=== PATIENT | female | born 1955 | race Caucasian/White ===

== ENCOUNTER 2019-05-29 07:57 | Day surgery (SDC) ==
--- NOTE | 2019-05-27 10:19 | HISTORY AND PHYSICAL ---
HISTORY: Patient is a 64-year-old female who has undergone prior surgical correction of pelvic organ prolapse using an anterior compartment mesh. The surgery was performed by another N[employer] SH[employer] MANAGER and the patient did well for approximately 1 year after surgery, but has been dealing with continued issues including revision of the anterior mesh 1 year after surgery. The patient has now had almost a total recurrence of her prolapse. On examination, she was found to have stage III prolapse that is mostly apical in nature. We discussed pessary management at length and she has no interest whatsoever in attempting pessary management and is wishing to proceed with surgical correction. The risks and benefits of sacrocolpopexy were explained at length. She understands and is wishing to proceed with surgical intervention. PAST MEDICAL HISTORY: Positive for hypertension, constipation and prolapse. PAST SURGICAL HISTORY: Positive for bilateral tubal ligation, transvaginal hysterectomy, endometrial ablation and anterior compartment repair with mesh. ALLERGIES: Anti-inflammatory medications primarily Mobic. SOCIAL HISTORY: Negative for tobacco, ETOH or drugs. FAMILY HISTORY: Noncontributory. PHYSICAL EXAMINATION: GENERAL: BMI is 35. HEENT: Normocephalic, atraumatic. PERRLA. EOMI. No thyromegaly. CV: Regular rate and rhythm without murmur, gallop, or rub. PULMONARY: Clear to auscultation and percussion. ABDOMEN: Soft. : Shows POP 2 stage 2-3 prolapse. The leading edge is BA at +1, C is -7, TVL is 9. She has lateral detachment bilaterally. AP is -2, BP is -4, GH is 6, PB is 4. NEUROLOGIC: Afocal. EXTREMITIES: Without clubbing, cyanosis, or edema. ASSESSMENT AND PLAN: The patient is admitted at this time for Da Gabrielle sacral colpopexy. The risks and benefits have been explained at length. She understands and is wishing to proceed to surgical intervention. cc: Christofer Negro MD
--- NOTE | 2019-05-27 15:07 | EKG Report ---
Test Performed on : 05/27/2019 2:55:46 PM Test Reason : PAT Blood Pressure : / mmHG Vent. Rate : 088 BPM Atrial Rate : 088 BPM P-R Int : 176 ms QRS Dur : 088 ms QT Int : 386 ms P-R-T Axes : 052 -09 037 degrees QTc Int : 467 ms Normal sinus rhythm. Minimal voltage criteria for LVH, may be normal variant Borderline ECG When compared with ECG of 18-OCT-2011 10:57, No significant change was found Confirmed by Ashley Dent MD ([id number]) on 05/31/2019 9:30:30 PM
[2019-05-27 15:14] LABS: BASO# 0.03 X1000 (0.0-0.2); BASO% 0.3 % (0.0-0.8); EOS# 0.08 X1000 (0.0-0.7); EOS% 0.9 % (0.0-10.0); HEMATOCRIT 37.7 % (37.0-47.0); HEMOGLOBIN 11.8 g/dL (12.0-16.0); IMM GRAN# 0.02 X1000 (0.0-0.04); IMM GRAN% 0.2 % (0.0-0.5); LYMPH# 2.91 X1000 (1.2-3.4); LYMPH% 33.6 % (20.5-51.1); MCH 26.8 PG (27-31); MCHC 31.3 g/dL (33-37); MCV 85.7 FL (81-99); MONO# 0.77 X1000 (0.11-0.59); MONO% 8.9 % (1.7-9.3); MPV 10.3 FL (7.4-10.4); NEUT# 4.86 X1000 (1.4-6.5); NEUT% 56.1 % (42.2-75.2); PLT 319 X1000 (130-400); RDW 15.9 % (11.5-14.5); WBC 8.67 X1000 (4.8-10.8)
[2019-05-29] MEDS ORDERED: DIPRIVAN 1% ONE (07:59)
[2019-05-29] MEDS ORDERED: XYLOCAINE-MPF 2% ONE (07:59)
[2019-05-29] MEDS ORDERED: FENTANYL ONE (07:59)
[2019-05-29] MEDS ORDERED: NORCURON ONE (08:00)
[2019-05-29] MEDS ORDERED: QUELICIN (DOSE) ONE (08:00)
[2019-05-29] MEDS ORDERED: VERSED ONE (08:00)
[2019-05-29] MEDS ORDERED: SENSORCAINE 0.25%/EPI 1:200,000 ONE (08:33)
[2019-05-29] MEDS ORDERED: LR 1,000 ML ONE ×3 (08:33→11:45)
[2019-05-29] MEDS ORDERED: D10W 1,000 ML ONE (08:33)
[2019-05-29] MEDS ORDERED: KEFZOL 1 GM/D5W 2 GM/100 ML IVPB ONE (08:35)
--- NOTE | 2019-05-29 09:11 | H&P REVIEW ---
H&P Update H&P Review: H&P was reviewed and patient was examined, No change has occurred in the patient's condition
[2019-05-29] MEDS ORDERED: ZOFRAN ONE (09:34)
[2019-05-29] MEDS ORDERED: TORADOL ONE (09:34)
[2019-05-29] MEDS ORDERED: DECADRON ONE (09:34)
[2019-05-29] MEDS ORDERED: EPHEDRINE ONE (09:56)
[2019-05-29] MEDS ORDERED: ROBINUL ONE (10:06)
[2019-05-29] MEDS ORDERED: NEOSTIGMINE ONE (10:06)
[2019-05-29] MEDS ORDERED: LASIX ONE (10:06)
[2019-05-29] MEDS ORDERED: DILAUDID ONE (12:01)
[2019-05-29 12:53] LABS: URINE SOURCE CATH
[2019-05-29 13:17] LABS: BILIRUBIN URINE NEGATIVE (NEGATIVE); BLOOD URINE NEGATIVE (NEGATIVE); COLOR STRAW; GLUCOSE URINE NEGATIVE (NEGATIVE); KETONE URINE NEGATIVE (NEGATIVE); LEUKOCYTES URINE NEGATIVE (NEGATIVE); NITRITE URINE NEGATIVE (NEGATIVE); PROTEIN URINE NEGATIVE (NEGATIVE); TURBIDITY URINE CLEAR (CLEAR); UROBILINOGEN URINE NORMAL (NORMAL)
[2019-05-29 13:19] LABS: UR EPITHELIAL CELLS <10 /HPF (<10); URINE BACTERIA NEGATIVE /HPF; URINE RBC <10 /HPF (<10); URINE WBC <10 /HPF (<10)
[2019-05-29] MEDS ORDERED: NORCO-5 PO PRN (13:30)
[2019-05-29] MEDS ORDERED: ZOFRAN ODT PO PRN (13:30)
--- NOTE | 2019-05-29 13:55 | PROGRESS NOTE ---
DATE: 05/29/2019 SUBJECTIVE: The patient is alert and oriented x3. OBJECTIVE: Afebrile. Vital signs are stable. Urine output is adequate. ASSESSMENT AND PLAN: Routine postoperative care. We will plan on discharge in the morning. She has had an uneventful postoperative course. She will undergo voiding trial in the morning. cc: Christofer Negro MD
--- NOTE | 2019-05-29 14:16 | OPERATIVE NOTE ---
PROCEDURE DATE: 05/29/2019 PREOPERATIVE DIAGNOSIS: Recurrent pelvic organ prolapse. POSTOPERATIVE DIAGNOSIS: Recurrent pelvic organ prolapse, stage III apical anterior prolapse. PROCEDURE: Da Gabrielle abdominal sacrocolpopexy, cystoscopy. SURGEON: Christofer Negro MD ANESTHESIA: General. ESTIMATED BLOOD LOSS: 20 mL. HISTORY: The patient is a 64-year-old female who had a prior vaginal mesh reconstruction, who did well for approximately 1 year and then had a recurrence. She has been living with it for several years and has now wished to proceed with surgical intervention. We had discussed pessary management in the past, but she refused this. OPERATIVE FINDINGS: POP-Q stage III prolapse with most of it being apical anterior. Normal bladder after completion of the procedure with efflux of urine from both ureters and no evidence of any mesh. OPERATIVE PROCEDURE: The patient taken to operating room and placed in supine position. After adequate general anesthesia obtained, she was placed in the [facility] and her abdomen vagina was prepped and draped in the usual fashion. A supraumbilical incision was made after infiltration of 0.25% Marcaine with epinephrine. Pelvic contents were visualized. Therefore, insufflation with CO2 to an intra-abdominal pressure of 14 was performed. The left-sided ports were easily placed under direct visualization in the typical positioning for sacrocolpopexy after infiltration of 0.25% Marcaine with epinephrine. The right-sided ports were placed in a similar fashion, again under direct visualization. The patient was placed in deep Trendelenburg position. Gay catheter was placed and EEA sizers were placed within the vagina and the rectum. The robot was docked in the usual fashion, hot scissors in the right hand, the PK bipolar device was in the left hand, and arm 3 was a Cadiere grasper. We initially started with mild lysis of adhesions anteriorly in order to be able to view the pelvis and after doing this, we had better visualization. We could see where the prior anterior compartment had been dissected out. The bladder was redundant on itself with some filmy adhesions. These were easily taken down. Upon doing this, we were then able to see the actual vesical vaginal dissection from her prior procedure and we could see the mesh in the thickening of the tissue in this area. We made an attempt to dissect some of the bladder off of the vaginal mesh anteriorly. However, decision was made not to do that any further than beyond approximately 2 cm due to the scarring and possible injury as we got lower down. We had that area, then we had the entire apex of the vagina with no mesh whatsoever and then the total posterior vaginal wall had no mesh in it whatsoever, so we have approximately a 2 cm window that was going to be placed anteriorly and then around the apex of the vagina and then the full dissection in the posterior compartment. Going up to the sacral promontory, we easily identified this. After laterally displacing the colon, we elevated the peritoneum off of it and easily opened this presacral space. We did identify the presacral vessels and easily cauterize. These were able to be visualize in the anterior longitudinal ligament. We created our tunnel in the typical fashion, maintaining visualization of the ureter throughout. After doing this, we trimmed our mesh with approximately 2 to 3 cm anteriorly and approximately 8 cm posteriorly and then the third arm was cut and appropriate positioning. Mesh was introduced. We secured the anterior portion initially with four 2.0 [place] sutures. All sutures were thrown with an initial surgeon's throw and 4 half throws after this. We placed approximately 8 to 10 sutures in the posterior, apical and then distal posterior portion of the rectovaginal mesh. Again, all sutures were thrown with an initial surgeon's throw and 4 half throws. The third arm was brought up to the promontory with a new suture. Two sutures were placed through the mesh and through the anterior longitudinal ligament. Excessive mesh was trimmed at this spot. We then copiously irrigated the area. Hemostasis was observed, so our attention towards reperitonealization. We did this quite easily with a V-Loc suture. Copious amounts of irrigation again was performed. Hemostasis was observed throughout. So, decision was made to terminate the procedure. All equipment was removed under direct visualization of the laparoscope. The robot was undocked in the usual fashion. We used a Mao-Mannie closure system to close the peritoneum and fascia of both the supraumbilical port and the assistance port. Nursing services closed all skin incisions with a subcuticular 4.0 Vicryl ligature, and skin edges were reapproximated with surgical glue. Vaginally, we had excellent apical support as well as anterior. Gay catheter was removed and the bladder was filled with D10. The bladder was found to be totally within normal limits. Both ureters were effluxing urine. There were no abnormalities cystoscope was removed. Gay catheter was replaced. Sponge count, instrument count, needle counts correct x3. Packs and drains were Gay. The patient was taken out of the low adjustable stirrups, awakened and taken to the recovery room with vital signs stable. cc: Christofer Negro MD
[2019-05-29] MEDS: TORADOL IV SCH ×2 (17:56→23:07)
[2019-05-29] MEDS: LR 1,000 ML IV SCH ×2 (17:57→19:52)
[2019-05-29] MEDS: PERIDEX MT SCH (23:07)
[2019-05-29] MEDS: COLACE PO SCH (23:07)
[2019-05-30] MEDS: LR 1,000 ML IV SCH ×2 (04:00→06:02)
[2019-05-30] MEDS: TORADOL IV SCH (06:18)
[2019-05-30] MEDS ORDERED: SYNTHROID PO SCH (07:00)
[2019-05-30 07:19] VITALS: BP 129/69
[2019-05-30] MEDS: PERIDEX MT SCH (08:28)
[2019-05-30] MEDS: COLACE PO SCH (08:28)
--- NOTE | 2019-05-30 20:06 | DISCHARGE SUMMARY ---
ADMISSION DATE: 05/29/2019 DISCHARGE DATE: 05/30/2019 PRINCIPAL DIAGNOSIS: Pelvic organ prolapse. PROCEDURE: Abdominal sacrocolpopexy. HISTORY: The patient is a 64-year-old female with a history of prior vaginal mesh reconstruction who has a recurrence of her symptoms. She had also had a sling placed before her procedure today. HOSPITAL COURSE: The patient with the above-stated procedure. Blood loss at time was less than 20 mL. Her postoperative course has been uncomplicated. She has currently already voided and is being discharged home. Instructions for followup in 3 weeks. DISCHARGE MEDICATIONS: [place], Colace, and Toradol. She was instructed on regular diet and decreased activity. cc: Christofer Negro MD
== END 2019-05-30 10:29 | disposition home or self-care (01) ==
LOC: DIRADM 07:57 → 4N 07:57 → OR 07:57
PROVIDERS: ATTEND Obstetrics & Gynecology